=== PATIENT | female | born 1970 | race Caucasian/White ===

== ENCOUNTER 2017-06-09 06:20 | Emergency (ER) | payer BC ==
[2017-06-09 06:46] LABS: ADD MAN DIFF? NO
[2017-06-09 06:49] LABS: BASO # 0.1 x10^3/uL (0.0-0.2); BASO % 1 % (0-3); EOS # 0.3 x10^3/uL (0.0-0.7); EOS % 4 % (0-3); HEMATOCRIT 42.9 % (36.0-47.0); HEMOGLOBIN 14.5 g/dL (12.0-15.5); LYMPH # 2.1 x10^3/uL (1.0-4.8); LYMPH % 31 % (24-48); MEAN CORPUSCULAR HEMOGLOBIN 34 pg (25-35); MEAN CORPUSCULAR HGB CONC 34 g/dL (31-37); MEAN CORPUSCULAR VOLUME 100 fL (79-100); MONO # 0.4 x10^3/uL (0.0-1.1); MONO % 6 % (0-9); NEUT # 3.9 x10^3uL (1.8-7.7); NEUT % 58 % (31-73); PLATELET COUNT 193 x10^3/uL (140-400); RED BLOOD COUNT 4.27 x10^6/uL (3.50-5.40); RED CELL DISTRIBUTION WIDTH 12.9 % (11.5-14.5); WHITE BLOOD COUNT 6.7 x10^3/uL (4.0-11.0)
[2017-06-09] MEDS ORDERED: CONTRAST GIVEN MC (07:00)
[2017-06-09 07:15] LABS: AGAP ISTAT 10 mmol/L (6-14); BUN ISTAT 9 mg/dL (8-26); CHLORIDE ISTAT 106 mmol/L (98-110); CREATININE ISTAT 0.9 mg/dL (0.5-1.4); GLUCOSE ISTAT 98 mg/dL (70-99); HEMATOCRIT ISTAT 43 % (36-40); HEMOGLOBIN ISTAT 14.6 g/dL (12-15); ION CA ISTAT 1.14 mmol/L (1.13-1.32); POTASSIUM ISTAT 3.9 mmol/L (3.5-5.0); SODIUM ISTAT 140 mmol/L (135-145); TOT CO2 ISTAT 28 mmol/L (23-32)
[2017-06-09] MEDS: diphenhydrAMINE HCL 25 MG CAPSULE PO (07:15)
[2017-06-09] MEDS: DEXAMETHASONE SOD PHOS 20 MG/5 ML VIAL. IV (07:15)
[2017-06-09] MEDS: IOHEXOL 300 MG/ML 100ML VIAL. IV (07:31)
== END 2017-06-09 08:13 | disposition home or self-care (01) ==
LOC: ER 06:20
DX: K08.9 Disorder of teeth and supporting structures, unspecified (principal); K11.5 Sialolithiasis; Z91.041 Radiographic dye allergy status
CPT/HCPCS: 36415; 70491; 80047; 85025; 96374; 99285-25; J1100; Q0163; Q9967